=== PATIENT | female | born 1965 | race Caucasian/White ===

== ENCOUNTER 2018-10-29 06:39 | Day surgery (SDC) | payer OTHER ==
[2018-10-29] MEDS ORDERED: LIDOCAINE 2% (SDV) 5 ML INJ (07:58)
[2018-10-29] MEDS ORDERED: PROPOFOL 20 ML (07:58)
== END 2018-10-29 11:41 | disposition home or self-care (01) ==
LOC: GIL 06:39
DX: Z12.11 Encounter for screening for malignant neoplasm of colon (principal); D12.5 Benign neoplasm of sigmoid colon; K64.8 Other hemorrhoids; E11.9 Type 2 diabetes mellitus without complications; I10 Essential (primary) hypertension
CPT/HCPCS: 45380; 82962; 88305